=== PATIENT | female | born 1965 | race African-American/Black ===

== ENCOUNTER → 2018-03-08 | Day surgery (SDC) | payer OTHER ==
[~2018-03-08] MED LIST: LIDOCAINE 1% PF 2 ML VIAL. ID; LIDOCAINE 2% PF Vial for OR 5 ML VIAL.; MIDAZOLAM HCL/PF 2 MG/2 ML VIAL. IV; PROPOFOL 40 ML IV; fentaNYL PF VIAL 100 MCG/2 ML VIAL IV
[2018-03-08] MEDS: IV RINGERS,LACTATED 1000ML 1,000 ML IV (09:35)
== END | disposition home or self-care (01) ==
LOC: SURG 09:04
DX: Z12.11 Encounter for screening for malignant neoplasm of colon (principal); K64.0 First degree hemorrhoids; E03.9 Hypothyroidism, unspecified; Z88.5 Allergy status to narcotic agent; Z88.8 Allergy status to other drugs, medicaments and biological substances; Z88.2 Allergy status to sulfonamides; Z88.6 Allergy status to analgesic agent; Z90.49 Acquired absence of other specified parts of digestive tract; M17.0 Bilateral primary osteoarthritis of knee; F41.9 Anxiety disorder, unspecified; F32.9 Major depressive disorder, single episode, unspecified
CPT/HCPCS: 45378; J2001; J2704